=== PATIENT | female | born 1950 | race Caucasian/White ===

== ENCOUNTER → 2016-06-21 | Outpatient (CLI) | payer OTHER ==
--- NOTE | 2016-06-21 11:02 | US ---
Limited Right Upper Quadrant Ultrasound History: History of hepatitis C and hepatic fibrosis. Gallbladder polyp. Comparison: Abdominal ultrasound November 17, 2015. Findings: The liver has coarsened echotexture with no focal hepatic masses. The right lobe of the funmilayo er measures 17.9 cm in the midaxillary line, previously 16.5 cm. There is no intrahepatic biliary dil atation. The common bile duct measures 4 mm and is normal. A benign 2 to 3 mm gallbladder polyp is no t significantly changed. The gallbladder is otherwise normal. The right kidney measures 12.4 cm and h as normal echotexture and contour without hydronephrosis. The visible aorta is normal caliber with mi ld atherosclerosis. The visible portions of the pancreas are normal with limited visualization of th e pancreatic head and tail. Impression: Stable abdominal ultrasound with no hepatic mass identified.
== END ==
LOC: FIMAGING 09:05
PROVIDERS: ATTEND Internal Medicine
DX: K74.0 Hepatic fibrosis (principal)

== ENCOUNTER → 2016-08-22 | Outpatient (CLI) | payer OTHER | LOC: FIMAGING 12:29 | DX: Z12.31 Encounter for screening mammogram for malignant neoplasm of breast (principal) | CPT/HCPCS: G0202 ==

== ENCOUNTER → 2016-11-30 | Outpatient (CLI) | payer OTHER | LOC: BMCIMAGING 09:29 | PROVIDERS: ATTEND Family Medicine | DX: Z13.820 Encounter for screening for osteoporosis (principal); M85.80 Other specified disorders of bone density and structure, unspecified site ==

== ENCOUNTER → 2016-12-06 | Outpatient (CLI) | payer OTHER | LOC: FIMAGING 06:51 | PROVIDERS: ATTEND Internal Medicine | DX: K74.0 Hepatic fibrosis (principal) ==